=== PATIENT | male | born 2000 | race Caucasian/White ===

== ENCOUNTER 2025-01-12 12:13 | Day surgery (SDC) | payer BC, SELFPAY ==
--- NOTE | 2025-01-07 12:40 | PAT.ANE_ITS ---
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 When Was Last Pacemaker Check QUESTION #4 FULL TEXT: You/Your Family Experience fever (hyperthermia) with Anesthesia Last Oral Intake Last Oral intake: Last Oral Intake NPO since Meds taken in AM with sips of water? 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 Has anyone observed you stop No 01/07/25 10:10 breathing during sleep? STOP Results Negative 01/07/25 10:10 QUESTION #5 FULL TEXT : Do you snore loudly (louder than talking or can be heard through closed doors)? 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 Specify any problems Hx of Preganancy in last 3 N/A 01/07/25 10:10 Months Nurse Filling Out Transfusion JZOLLINGE 01/07/25 10:10 & Questions: Date: 01/07/25 01/07/25 10:10 Time: 10:13 01/07/25 10:10 Patient unable to answer at this time (ie. 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 installer Hx Now No 01/07/25 10:10 Gestational Age (in weeks): EDC: Hx Hx Para Hx Section SAB No 01/07/25 10:10 PFSH Medical History (Updated 01/07/25 @ 10:23 by Damaris Conklin) History of rectal bleeding Wears glasses Alcohol use Marijuana use Injury of head and neck Smoker Myotonia congenita Right testicular pain Home Medications ?Medication ?Instructions ?Recorded ?Last Taken ?Type mexiletine 200 mg capsule 200 mg PO Q8H 10/25/24 Unkno wn History Allergy/AdvReac Type Severity Reaction Status Date / Time No Known Allergies Allergy Verified 01/07/25 10:00 Family History Mother Breast cancer Alcohol abuse Grandmother Breast cancer Surgical History (Updated 01/07/25 @ 10:24 by Damaris Conklin) Hx of wisdom tooth extraction Social History Smoking Status: Light Smoker (<10/day) alcohol intake: current details: a few drinks a week substance use type: marijuana caffeine: Yes what type of physical activity do you participate in: running frequency: 1-2 times per week Audit: Pertinent Findings Current Visit Impressions Current Visit Impressions: Myotonia congenita-TAKES MEXILETINE TID-CAN NOT HAVE ANECTINE/SUCCINYLCHOLINE WHILE TAKING THIS MEDICATION Recommendation Anesthesia Recommendation Anesthesia recommendation: OPTIMIZED for anesthesia (Myotonia congenita-TAKES MEXILETINE TID-CAN NOT HAVE ANECTINE/SUCCINYLCHOLINE WHILE TAKING THIS MEDICATION)
[2025-01-12] VITALS (8 sets, daily range): BP systolic 92–125; BP diastolic 51–78; PULSE 55–63; RESP 16; TEMP 36.3–36.6; O2SAT 95–99; BMI 25.2
--- NOTE | 2025-01-12 12:20 | PRE.ANES_ITS ---
ASA Classification* ASA Classification ASA Classification: 2 Assessment & Plan Anesthesia* Anesthesia Assessment Anesthesia Assessment: Discussed sedation and/or anesthesia options, risks, benefits, and alternatives with patient/parents/legal guardian/POA. Questions invited. The patient/parents/legal guardian/POA seems to understand and agrees to proceed with anesthesia plan. Reviewed the physical assessment, medical history, allergy history and patient home medications list prior to surgery/procedure/anesthetic and documented any changes. Performed airway and anesthesia risk assessments. 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 When Was Last Pacemaker Check QUESTION #4 FULL TEXT: You/Your Family Experience fever (hyperthermia) with Anesthesia Last Oral Intake Last Oral intake: Last Oral Intake NPO since Meds taken in AM with sips of water? 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 Has anyone observed you stop No 01/07/25 10:10 breathing during sleep? STOP Results Negative 01/07/25 10:10 QUESTION #5 FULL TEXT : Do you snore loudly (louder than talking or can be heard through closed doors)? 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 Specify any problems Hx of Preganancy in last 3 N/A 01/07/25 10:10 Months Nurse Filling Out Transfusion JZOLLINGE 01/07/25 10:10 & Questions: Date: 01/07/25 01/07/25 10:10 Time: 10:13 01/07/25 10:10 Patient unable to answer at this time (ie. 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 Hx Now No 01/07/25 10:10 Gestational Age (in weeks): EDC: Hx Hx Para Hx Section SAB No 01/07/25 10:10 [facility] Medical History History of rectal bleeding Wears glasses Alcohol use Marijuana use Injury of head and neck Smoker Myotonia congenita Right testicular pain Home Medications ?Medication ?Instructions ?Recorded ?Last Taken ?Type mexiletine 200 mg capsule 200 mg PO Q8H 10/25/24 Unkno wn History Allergy/AdvReac Type Severity Reaction Status Date / Time succinylcholine AdvReac Severe Anaphylaxis Verified 01/07/25 16:04 Family History Mother Breast cancer Alcohol abuse Grandmother Breast cancer Surgical History Hx of wisdom tooth extraction Social History Smoking Status: Light Smoker (<10/day) alcohol intake: current details: a few drinks a week substance use type: marijuana caffeine: Yes what type of physical activity do you participate in: running frequency: 1-2 times per week Review of Systems (Anesthesia) ROS Narrative System reviewed and no additional complaints, except as documented.
--- NOTE | 2025-01-12 13:34 | PCM.HP.STD ---
HPI - General General Date of Admission: 01/12/25 Date of Service: 01/12/25 Chief Complaint: Lower GI bleeding HPI Narrative Chief Complaint: rectal bleeding 24y/o male presents with complaints of rectal bleeding. 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 - rectal bleeding has been ongoing for years, states 2 years ago he realized it was not normal - states the bleeding he thinks dates back to elementary stool - blood is with BM - dark pink/red - specks on TP and occasional drops of blood in the toilet - denies any rectal pain - denies any abdominal pain - denies any bloating - denies any constipation - denies any diarrhea - denies any family h/o IBD or colon CA - denies any weight loss - denies any change in bowel habits - denies any straining with BM - reports recent labs done on campus were WNL - [facility] [employer] - [employer] major - graduates this spring - parents will be coming in from [place] to be with him when he has the colonoscopy [facility] Medical History History of rectal bleeding Wears glasses Alcohol use Marijuana use Injury of head and neck Smoker Myotonia congenita Right testicular pain Home Medications ?Medication ?Instructions ?Recorded ?Last Taken ?Type mexiletine 200 mg capsule 200 mg PO Q8H 10/25/24 01/10/25 History Allergy/AdvReac Type Severity Reaction Status Date / Time Quinolones Allergy Unknown Anaphylaxis Verified 01/12/25 12:51 succinylcholine AdvReac Severe Anaphylaxis Verified 01/07/25 16:04 Family History Mother Breast cancer Alcohol abuse Grandmother Breast cancer Surgical History Hx of wisdom tooth extraction Social History Smoking Status: Light Smoker (<10/day) alcohol intake: current details: a few drinks a week substance use type: marijuana caffeine: Yes what type of physical activity do you participate in: running frequency: 1-2 times per week ROS Constitutional Constitutional: Denies fatigue, fever(s), poor appetite, weight gain or weight loss Gastrointestinal Gastrointestinal: Denies belching, bloating, change in bowel habits, change in stool character, chewing difficulty, coffee ground emesis, constipation, cramping, diarrhea, dyspepsia, dysphagia, early satiety, excessive flatus, fecal incontinence, heartburn, hematemesis, hematochezia, hemorrhoids, loose stools, melena, nausea, odynophagia, rectal bleeding, tenesmus, vomiting or weight changes Vital Signs Vital Signs Vital Signs: 01/12/25 12:52 01/12/25 12:52 Temperature 97.4 F L Temperature Source Temporal Pulse Rate 63 Respiratory Rate 16 Respiratory Pattern Normal Blood Pressure 125/78 H Blood Pressure Mean 93 Blood Pressure Source Monitor Blood Pressure Position Semi-Fowlers Blood Pressure Location Right Arm Pulse Ox 98 Oxygen Delivery Method Room Air Weight Weight: 191 lb 12.835 oz Body Mass Index (BMI) 25.2 Physical Exam Const alert, oriented x3, no apparent distress and healthy appearing General Appearance: cooperative GI normal to inspection, nondistended, normoactive bowel sounds, soft to palpation, non-tender and non-distended Percussion: normal to percussion Rectal Exam: deferred Assessment & Plan Assessment/Plan (1) GI bleed: PLAN: Assessment and Plan Assessment and Plan (1) Rectal hemorrhage: (2) Myotonia congenita: Status: Acute Plan 24y/o male presents for consultation with complaints of rectal bleeding. 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 Bleeding has been intermittent for many years. He denies any associated rectal pain, abdominal pain, change in bowel habits or weight loss. He denies any family history of colon CA or IBD. I have scheduled him for a colonoscopy. Plan Details Follow Up: 3 Months
--- NOTE | 2025-01-12 14:11 | OP.COLON_ITS ---
Patient Name: Dion Anderson Procedure Date: 01/12/2025 1:39 PM Date of : 2000 Age: 24 Procedure: Colonoscopy Indications: Hematochezia Providers: Krzysztof Rodríguez DO Referring MD: No Primary Care Physician Medicines: Monitored Anesthesia Care Patient Profile: This is a 24 year old male. Refer to note in patient chart for documentation of history and physical. Last Colonoscopy: none. The patient's first colonoscopy is today. Complications: No immediate complications. Procedure: Pre-Anesthesia Assessment: - Prior to the procedure, a History and Physical was performed, and patient medications and allergies were reviewed. The patient is competent. The risks and benefits of the procedure and the sedation options and risks were discussed with the patient. All questions were answered and informed consent was obtained. Patient identification and proposed procedure were verified by the physician in the pre-procedure area. Mental Status Examination: alert and oriented. Airway Examination: normal oropharyngeal airway and neck mobility. Respiratory Examination: clear to auscultation. CV Examination: normal. Prophylactic Antibiotics: The patient does not require prophylactic antibiotics. Prior Anticoagulants: The patient has taken no anticoagulant or antiplatelet agents except for NSAID medication. ASA Grade Assessment: II - A patient with mild systemic disease. After reviewing the risks and benefits, the patient was deemed in satisfactory condition to undergo the procedure. The anesthesia plan was to use monitored anesthesia care (MAC). Immediately prior to administration of medications, the patient was re-assessed for adequacy to receive sedatives. The heart rate, respiratory rate, oxygen saturations, blood pressure, adequacy of pulmonary ventilation, and response to care were monitored throughout the procedure. The physical status of the patient was re-assessed after the procedure. After I obtained informed consent, the scope was passed under direct vision. Throughout the procedure, the patient's blood pressure, pulse, and oxygen saturations were monitored continuously. The Colonoscope was introduced through the anus and advanced to the terminal ileum. The colonoscopy was performed without difficulty. The patient tolerated the procedure well. The quality of the bowel preparation was adequate. The terminal ileum, ileocecal valve, appendiceal orifice, and rectum were photographed. Scope In: 1:51:06 PM Scope Withdrawal Time 0 hours 8 minutes 29 seconds Scope Out: 2:05:22 PM Total Procedure Duration Time 0 hours 14 minutes 16 seconds Findings: The perianal and digital rectal examinations were normal. An 8 mm anal fissure was found in the anal canal. The exam was otherwise without abnormality on direct and retroflexion views. The terminal ileum appeared normal. Impression: - Anal fissure. - The examination was otherwise normal on direct and retroflexion views. - The examined portion of the ileum was normal. - No specimens collected. Recommendation: - Discharge patient to home. - Resume previous diet. - Continue present medications. - Repeat colonoscopy at age 47 for screening purposes. Procedure Code(s): --- Professional --- 10923, Colonoscopy, flexible; diagnostic, including collection of specimen(s) by brushing or washing, when performed (separate procedure) CPT copyright 2021 [employer]. All rights reserved. The codes documented in this report are preliminary and upon leather sorter review may be revised to meet current compliance requirements. Krzysztof Rodríguez DO 01/12/2025 2:11:42 PM This report has been signed electronically. Number of Addenda: 0 Note Initiated On: 01/12/2025 1:39 PM
--- NOTE | 2025-01-12 14:12 | OP.CCLET_ITS ---
01/12/2025 No Primary Care Physician Re : Colonoscopy procedure for [facility] Physician This procedure was performed on Sunday, January 12, 2025. My impressions and recommendations are as follows: Impressions : - Anal fissure. - The examination was otherwise normal on direct and retroflexion views. - The examined portion of the ileum was normal. - No specimens collected. Recommendations : - Discharge patient to home. - Resume previous diet. - Continue present medications. - Repeat colonoscopy at age 47 for screening purposes. My findings are described in the full procedure note, which is enclosed. If I can be of further assistance, please feel free to contact me at . Sincerely, Krzysztof Rodríguez, 01/12/2025 2:11:42 PM This report has been signed electronically.
--- NOTE | 2025-01-12 14:15 | PCM.POST.ANE ---
Anesthesia: Postop Eval I Current Vital Signs Temperature: 97.5 F Pulse Rate: 57 Blood Pressure: 93/51 Respiratory Rate: 16 Pulse Ox: 95 Oxygen Delivery Method: Room Air Assessment Airway patent: Yes Spontaneous unlabored respirations: Yes Mental status: Asleep nausea: No Vomiting: No Anesthesia Complication: No Fluid Hydration Crystalloid volume administer (ml): 60 Total IV fluid infused: 60 Progress Note Anesthesia document: Postop Eval 1 completed: Yes
--- NOTE | 2025-01-12 14:34 | PCM.POSTANE2 ---
Anesthesia Postop Eval I Sum Postop Eval Completion status Anesthesia document: Postop Eval 1 completed: Yes Anesthesia Postop Eval I Summary Anesthesia Postop Eval I Summary: Anesthesia Postop Eval I: Assessment Summary Airway patent Yes 01/12/25 14:16 [email or web address] Spontaneous unlabored Yes 01/12/25 14:16 [email or web address] respirations Mental status Asleep 01/12/25 14:16 [email or web address] nausea No 01/12/25 14:16 [email or web address] Vomiting No 01/12/25 14:16 [email or web address] Anesthesia Postop Eval I: Fluid Summary Crystalloid volume administer 60 01/12/25 14:16 [email or web address] (ml) Colloids volume administered ( ml) Blood Product volume administered (ml) Total IV fluid infused 60 01/12/25 14:16 [email or web address] Anesthesia Postop Eval I: Summary Notes Anesthesia Complication No 01/12/25 14:16 [email or web address] Anesthesia Complication Comment: Post-operative progress note Anesthesia: Postop Eval II Evaluation Mental status: Awake Pain Level: 0 nausea: No Vomiting: No
== END 2025-01-12 15:11 | disposition home or self-care (01) ==
LOC: EN 12:24 → AC 12:24
PROVIDERS: Referring Provider Internal Medicine Gastroenterology; Visit Provider Internal Medicine Gastroenterology
PROC: 0DJD8ZZ Inspection of Lower Intestinal Tract, Via Natural or Artificial Opening Endoscopic (ICD-10-PCS; CPT 45378; principal; 2025-01-12 13:25)
DX: K60.2 Anal fissure, unspecified (principal); K62.5 Hemorrhage of anus and rectum; F12.90 Cannabis use, unspecified, uncomplicated; F17.210 Nicotine dependence, cigarettes, uncomplicated; G71.12 Myotonia congenita
CPT/HCPCS: 45378; A4216; J2405